=== PATIENT | male | born 1935 | race Two or more races ===

== ENCOUNTER 2017-11-30 23:24 | Emergency (ER) | payer MEDICARE, OTHER ==
[~2017-11-30] VITALS: Ht 172.7 cm; Wt 83.9 kg
[~2017-11-30 23:24] MED LIST: MECL12.582 PO
--- NOTE | 2017-11-30 23:51 | NUR ---
DR. SALMERON AT BEDSIDE FOR MSE.
[2017-12-01] MEDS ORDERED: NITROGLYCERIN OINT 1 GM PACKET TP ONE
[2017-12-01] MEDS ORDERED: ENALAPRILAT DIHYDRATE 1.25 MG/1 ML VIAL IV ONE
[2017-12-01] MEDS ORDERED: ASPIRIN 81 MG TAB.CHEW PO ONE
[2017-12-01] MEDS ORDERED: METOCLOPRAMIDE HCL 10 MG/2 ML VIAL IV ONE (00:15)
[2017-12-01] MEDS ORDERED: IV NORMAL SALINE 1000 ML BAG IV ONE (00:15)
[2017-12-01 00:26] LABS: BASOPHILS # (AUTO) 0.1 K/uL (0.0-8.0); BASOPHILS % (AUTO) 0.1 % (0.0-2.0); EOSINOPHILS # (AUTO) 0.1 K/uL (0.0-0.7); EOSINOPHILS % (AUTO) 0.1 % (0.0-7.0); HEMATOCRIT 38.7 % (36.7-47.1); HEMOGLOBIN 12.5 g/dL (12.5-16.3); LYMPHOCYTES # (AUTO) 76.1 K/uL (20.0-40.0); LYMPHOCYTES % (AUTO) 92.1 % (20.5-51.5); MEAN CORPUSCULAR HEMOGLOBIN 29.2 uug (23.8-33.4); MEAN CORPUSCULAR HGB CONC 32 g/dL (32.5-36.3); MEAN CORPUSCULAR VOLUME 90.6 fL (73.0-96.2); MONOCYTES # (AUTO) 1.3 K/uL (2.0-10.0); MONOCYTES % (AUTO) 1.6 % (0.0-11.0); NEUTROPHILS % (AUTO) 6.1 % (38.5-71.5); PLATELET COUNT (AUTO) 73 K/uL (152-348); RED BLOOD CELL COUNT(AUTO) 4.27 MIL/uL (4.06-5.63)
[2017-12-01 00:30] LABS: WHITE BLOOD COUNT (AUTO) 82.6 K/uL (3.6-10.2)
[2017-12-01] MEDS ORDERED: METOCLOPRAMIDE HCL 10 MG/2 ML VIAL ONE (00:31)
[2017-12-01 00:32] LABS: CARBON DIOXIDE 27 mmol/L (21-32); CHLORIDE 102 mmol/L (98-107); CREATININE 1.3 mg/dL (0.6-1.3); GLUCOSE 155 mg/dL (74-106); POTASSIUM 3.6 mmol/L (3.5-5.1); UREA NITROGEN, BLOOD 23 mg/dL (7-18)
[2017-12-01 00:44] LABS: ALANINE AMINOTRANSFERASE 18 U/L (16-63); ALKALINE PHOSPHATASE 116 U/L (50-136); ASPARTATE AMINOTRANSFERASE 21 U/L (15-37); BILIRUBIN,DIRECT 0.2 mg/dL (0.0-0.2); BILIRUBIN,TOTAL 0.4 mg/dL (0.2-1.0); TOTAL PROTEIN, SERUM 6.4 g/dL (6.4-8.2)
--- NOTE | 2017-12-01 01:33 | NUR ---
Patient discharged to home in stable conditon. Written and verbal after care instructions given. Patient verbalizes understanding of instructions. PATIENT LEFT WITH STABLE GAIT.
[2017-12-01 01:36] VITALS: BP 153/77
[2017-12-01 01:56] LABS: LYMPHOCYTES % (MANUAL) 91 % (20-40)
[2017-12-01 01:57] LABS: MONOCYTES % (MANUAL) 2 % (2-10); NEUTROPHILS % (MANUAL) 7 % (42-75)
== END 2017-12-01 01:36 | disposition home or self-care (01) ==
LOC: ER 23:28
DX: R11.2 Nausea with vomiting, unspecified (principal); M79.1 Myalgia; Z90.79 Acquired absence of other genital organ(s)
CPT/HCPCS: 36415; 71045; 80048; 80076; 83880; 84484; 85025; 85730; 87400; 93005; 96361; 96374; 99285; A4663; J2765; J7030; 70030-TC

== ENCOUNTER 2018-06-09 15:55 | Emergency (ER) | payer MEDICARE, OTHER ==
[~2018-06-09] VITALS: Ht 177.8 cm; Wt 78.0 kg
[2018-06-09] MEDS ORDERED: IMBRUVICA (16:23)
[2018-06-09] MEDS ORDERED: OXYCOD/APAP TAB 10-325MG (16:23)
[2018-06-09] MEDS ORDERED: LORAZEPAM 2 MG/1 ML VIAL IM ONE (17:00)
[2018-06-09] MEDS ORDERED: LORAZEPAM 2 MG/1 ML VIAL ONE (17:20)
[2018-06-09] MEDS ORDERED: LIDOCAINE 2% (UROJET) 10 ML JELLY MM ONE ×3 (17:25→17:37)
--- NOTE | 2018-06-09 17:26 | NUR ---
PT WAS EVALUATED BY DR SALMERON. DR SALMERON PERFORMED DISIMPACTION PROCEDURE. PT TOLERATED TO PROCEDURE WITHOUT COMPLICATIONS.
--- NOTE | 2018-06-09 17:47 | NUR ---
PT WAS D/C TO HOME. D/C INSTRUCTIONS GIVEN TO THE PT.
[2018-06-09 17:53] VITALS: BP 139/75
== END 2018-06-09 17:54 | disposition home or self-care (01) ==
LOC: ER 15:55
DX: K56.41 Fecal impaction (principal); Z79.899 Other long term (current) drug therapy
CPT/HCPCS: A4663; J2060

== ENCOUNTER 2018-06-24 17:59 | Inpatient (IN) | payer MEDICARE, OTHER ==
[~2018-06-24] VITALS: Ht 170.2 cm; Wt 74.8 kg
[~2018-06-24 17:59] MED LIST changes: +IMBRUVICA; -MECL12.582 PO; +OXYCOD/APAP TAB 10-325MG
[2018-06-24] MEDS ORDERED: OXYC5TAB3 PO ×2 (18:29→23:07)
[2018-06-24] MEDS ORDERED: LEVO750T46 PO (18:29)
[2018-06-24] MEDS ORDERED: ENOX40DI SQ (18:29)
[2018-06-24] MEDS ORDERED: DOCU100C36 PO (18:29)
[2018-06-24] MEDS ORDERED: ACET-73 PO (18:43)
[2018-06-24] MEDS ORDERED: GABA-532 PO (18:43)
[2018-06-24] MEDS ORDERED: MELA5TAB PO (19:38)
[2018-06-24] MEDS ORDERED: SENN-167 PO ×2 (19:38→23:07)
[2018-06-24 20:03] VITALS: BP 116/57
[2018-06-24] MEDS ORDERED: SENNOSIDES 1 TABLET PO SCH (20:45)
[2018-06-24] MEDS ORDERED: DOCUSATE SODIUM 100 MG CAPSULE PO PRN (20:45)
[2018-06-24] MEDS: ACETAMINOPHEN 325 MG TABLET PO PRN (22:04)
[2018-06-24] MEDS: MELATONIN 3 MG TABLET PO SCH (22:04)
[2018-06-24] MEDS ORDERED: SENNOSIDES 1 TABLET PO PRN (23:15)
[2018-06-24] MEDS: OXYCODONE HCL 5 MG TABLET PO SCH (23:28)
[2018-06-25 05:51] VITALS: BP 119/54
[2018-06-25] MEDS: OXYCODONE HCL 5 MG TABLET PO SCH (06:12)
[2018-06-25 07:33] LABS: BASOPHILS % (AUTO) 0.1 % (0.0-2.0); EOSINOPHILS # (AUTO) 0.2 K/uL (0.0-0.7); EOSINOPHILS % (AUTO) 0.9 % (0.0-7.0); HEMATOCRIT 22.8 % (36.7-47.1); HEMOGLOBIN 7.5 g/dL (12.5-16.3); LYMPHOCYTES # (AUTO) 14.9 K/uL (20.0-40.0); LYMPHOCYTES % (AUTO) 81.2 % (20.5-51.5); MEAN CORPUSCULAR HEMOGLOBIN 30.1 uug (23.8-33.4); MEAN CORPUSCULAR HGB CONC 33 g/dL (32.5-36.3); MEAN CORPUSCULAR VOLUME 91.4 fL (73.0-96.2); MONOCYTES # (AUTO) 0.5 K/uL (2.0-10.0); MONOCYTES % (AUTO) 2.7 % (0.0-11.0); NEUTROPHILS # (AUTO) 2.8 K/uL (1.8-8.9); NEUTROPHILS % (AUTO) 15.1 % (38.5-71.5)
[2018-06-25 07:44] LABS: RED BLOOD CELL COUNT(AUTO) 2.49 MIL/uL (4.06-5.63); WHITE BLOOD COUNT (AUTO) 18.4 K/uL (3.6-10.2)
[2018-06-25 07:45] LABS: PLATELET COUNT (AUTO) 127 K/uL (152-348)
[2018-06-25 08:06] LABS: CARBON DIOXIDE 30 mmol/L (21-32); CHLORIDE 104 mmol/L (98-107); CHOLESTEROL 113 mg/dL (<200); GLUCOSE 118 mg/dL (74-106); HDL CHOLESTEROL 25 mg/dL (40-60); MAGNESIUM 2.2 mg/dL (1.8-2.4); PHOSPHOROUS 3.6 mg/dL (2.5-4.9); POTASSIUM 4.4 mmol/L (3.5-5.1); TRIGLYCERIDES 69 MG/DL (30-150); UREA NITROGEN, BLOOD 24 mg/dL (7-18)
[2018-06-25 08:17] LABS: THYROID STIMULATING HORMONE 1.091 mIU/mL (0.358-3.740)
[2018-06-25] MEDS ORDERED: ENOXAPARIN SODIUM 40 MG/0.4 ML DISP.SYRIN SQ SCH (09:00)
[2018-06-25] MEDS: LEVOFLOXACIN 750 MG TABLET PO SCH (09:40)
[2018-06-25 10:29] LABS: EOSINOPHILS % (MANUAL) 3 % (0-8); LYMPHOCYTES % (MANUAL) 76 % (20-40); MONOCYTES % (MANUAL) 1 % (2-10); NEUTROPHILS % (MANUAL) 20 % (42-75)
[2018-06-25] MEDS ORDERED: OXYCODONE HCL 5 MG TABLET PO PRN (12:00)
[2018-06-25] MEDS: ACETAMINOPHEN 325 MG TABLET PO PRN ×2 (12:36→18:40)
[2018-06-25] MEDS ORDERED: KETOROLAC TROMETHAMINE 10 MG TABLET PO PRN (18:45)
[2018-06-25 19:58] VITALS: BP 113/55
[2018-06-25 20:01] VITALS: BP 113/55
[2018-06-25] MEDS: OXYCODONE HCL 10 MG TAB.SR.12H PO SCH (21:07)
[2018-06-25] MEDS: MELATONIN 3 MG TABLET PO SCH (21:07)
[2018-06-26 05:40] VITALS: BP 112/54
[2018-06-26 08:46] LABS: BASOPHILS % (AUTO) 0.2 % (0.0-2.0); EOSINOPHILS # (AUTO) 0.2 K/uL (0.0-0.7); LYMPHOCYTES # (AUTO) 17.3 K/uL (20.0-40.0); LYMPHOCYTES % (AUTO) 80.4 % (20.5-51.5); MEAN CORPUSCULAR HEMOGLOBIN 30.3 uug (23.8-33.4); MEAN CORPUSCULAR HGB CONC 33 g/dL (32.5-36.3); MEAN CORPUSCULAR VOLUME 91.3 fL (73.0-96.2); MONOCYTES # (AUTO) 0.5 K/uL (2.0-10.0); MONOCYTES % (AUTO) 2.5 % (0.0-11.0); NEUTROPHILS # (AUTO) 3.4 K/uL (1.8-8.9); NEUTROPHILS % (AUTO) 15.9 % (38.5-71.5); PLATELET COUNT (AUTO) 154 K/uL (152-348); RED BLOOD CELL COUNT(AUTO) 2.62 MIL/uL (4.06-5.63); WHITE BLOOD COUNT (AUTO) 21.6 K/uL (3.6-10.2)
[2018-06-26] MEDS: LEVOFLOXACIN 750 MG TABLET PO SCH (08:47)
[2018-06-26] MEDS: OXYCODONE HCL 10 MG TAB.SR.12H PO SCH ×2 (08:48→20:57)
[2018-06-26 08:53] VITALS: BP 112/51
[2018-06-26 09:00] LABS: IRON, SERUM 31 ug/dL (50-175)
[2018-06-26] MEDS: OXYCODONE HCL 5 MG TABLET PO PRN ×2 (10:35→14:46)
[2018-06-26 11:38] LABS: EOSINOPHILS % (MANUAL) 1 % (0-8); LYMPHOCYTES % (MANUAL) 85 % (20-40); NEUTROPHILS % (MANUAL) 14 % (42-75)
[2018-06-26 19:30] VITALS: BP 111/57
[2018-06-26] MEDS: TEMAZEPAM 15 MG CAPSULE PO SCH (20:57)
[2018-06-26] MEDS: MELATONIN 3 MG TABLET PO SCH (20:57)
[2018-06-27 05:30] VITALS: BP 111/57
[2018-06-27] MEDS: LEVOFLOXACIN 750 MG TABLET PO SCH (07:58)
[2018-06-27] MEDS: OXYCODONE HCL 10 MG TAB.SR.12H PO SCH ×2 (08:00→22:30)
[2018-06-27 12:51] LABS: *OCCULT BLOOD STOOL NEGATIVE (NEGATIVE)
[2018-06-27 16:28] VITALS: BP 111/53
[2018-06-27] MEDS ORDERED: DIAZEPAM 5 MG TABLET PO PRN (18:00)
[2018-06-27] MEDS: MAGNESIUM HYDROXIDE 30 ML LIQUID UDC PO PRN (18:01)
[2018-06-27] MEDS ORDERED: Z GUARD REMEDY PASTE 57 GM TUBE TOP PRN (19:30)
[2018-06-27] MEDS: OXYCODONE HCL 5 MG TABLET PO PRN (19:40)
[2018-06-27 20:52] VITALS: BP 129/68
[2018-06-27] MEDS ORDERED: MAGNESIUM HYDROXIDE 30 ML LIQUID UDC PO SCH (21:00)
[2018-06-27] MEDS: MELATONIN 3 MG TABLET PO SCH (21:02)
[2018-06-27] MEDS: TEMAZEPAM 15 MG CAPSULE PO SCH (21:05)
[2018-06-28 05:25] VITALS: BP 97/58
[2018-06-28] MEDS: ESCITALOPRAM OXALATE 10 MG TABLET PO SCH (08:49)
[2018-06-28] MEDS: LEVOFLOXACIN 750 MG TABLET PO SCH (08:49)
[2018-06-28] MEDS: SENNOSIDES/DOCUSATE SODIUM TABLET PO SCH (08:50)
[2018-06-28] MEDS: OXYCODONE HCL 10 MG TAB.SR.12H PO SCH ×2 (08:51→20:57)
[2018-06-28] MEDS: OXYCODONE HCL 5 MG TABLET PO PRN ×2 (10:23→18:32)
[2018-06-28] MEDS: MAGNESIUM HYDROXIDE 30 ML LIQUID UDC PO PRN (18:30)
[2018-06-28 20:13] VITALS: BP 121/49
[2018-06-28] MEDS: TEMAZEPAM 15 MG CAPSULE PO SCH (20:56)
[2018-06-28] MEDS: MELATONIN 3 MG TABLET PO SCH (20:56)
[2018-06-29 06:06] VITALS: BP 104/49
[2018-06-29 07:14] LABS: BASOPHILS % (AUTO) 0.3 % (0.0-2.0); EOSINOPHILS # (AUTO) 0.3 K/uL (0.0-0.7); EOSINOPHILS % (AUTO) 1.5 % (0.0-7.0); HEMATOCRIT 21.6 % (36.7-47.1); LYMPHOCYTES # (AUTO) 15.6 K/uL (20.0-40.0); LYMPHOCYTES % (AUTO) 81.7 % (20.5-51.5); MEAN CORPUSCULAR HEMOGLOBIN 29.8 uug (23.8-33.4); MEAN CORPUSCULAR HGB CONC 33 g/dL (32.5-36.3); MEAN CORPUSCULAR VOLUME 91.4 fL (73.0-96.2); MONOCYTES # (AUTO) 0.4 K/uL (2.0-10.0); MONOCYTES % (AUTO) 2.1 % (0.0-11.0); NEUTROPHILS # (AUTO) 2.7 K/uL (1.8-8.9); NEUTROPHILS % (AUTO) 14.4 % (38.5-71.5); PLATELET COUNT (AUTO) 162 K/uL (152-348)
[2018-06-29 07:15] LABS: ALANINE AMINOTRANSFERASE 24 U/L (16-63); ALKALINE PHOSPHATASE 92 U/L (50-136); ASPARTATE AMINOTRANSFERASE 24 U/L (15-37); BILIRUBIN,TOTAL 0.6 mg/dL (0.2-1.0); CARBON DIOXIDE 31 mmol/L (21-32); CHLORIDE 105 mmol/L (98-107); CREATININE 1.1 mg/dL (0.6-1.3); GLUCOSE 109 mg/dL (74-106); MAGNESIUM 2.3 mg/dL (1.8-2.4); TOTAL PROTEIN, SERUM 4.9 g/dL (6.4-8.2); UREA NITROGEN, BLOOD 16 mg/dL (7-18)
[2018-06-29 07:16] LABS: RED BLOOD CELL COUNT(AUTO) 2.37 MIL/uL (4.06-5.63)
[2018-06-29] MEDS: OXYCODONE HCL 10 MG TAB.SR.12H PO SCH ×2 (08:30→20:52)
[2018-06-29] MEDS: SENNOSIDES/DOCUSATE SODIUM TABLET PO SCH (08:30)
[2018-06-29] MEDS: ESCITALOPRAM OXALATE 10 MG TABLET PO SCH (08:30)
[2018-06-29] MEDS: MAGNESIUM HYDROXIDE 30 ML LIQUID UDC PO PRN (08:31)
[2018-06-29 09:20] LABS: EOSINOPHILS % (MANUAL) 1 % (0-8); LYMPHOCYTES % (MANUAL) 80 % (20-40); MONOCYTES % (MANUAL) 3 % (2-10); NEUTROPHILS % (MANUAL) 16 % (42-75)
[2018-06-29 10:59] VITALS: BP 105/44
[2018-06-29] MEDS ORDERED: IV NORMAL SALINE 1,000 ML IV ONE (12:30)
[2018-06-29] MEDS ORDERED: IV NORMAL SALINE 250 ML IV PRN (12:45)
[2018-06-29] MEDS: OXYCODONE HCL 5 MG TABLET PO PRN (14:34)
[2018-06-29 16:00] VITALS: BP 110/49
[2018-06-29 20:19] VITALS: BP 108/46
[2018-06-29] MEDS: TEMAZEPAM 15 MG CAPSULE PO SCH (20:51)
[2018-06-29] MEDS: MELATONIN 3 MG TABLET PO SCH (20:57)
[2018-06-30] VITALS (10 sets, daily range): BP systolic 11–151; BP diastolic 35–58
[2018-06-30] MEDS: ESCITALOPRAM OXALATE 10 MG TABLET PO SCH (07:59)
[2018-06-30] MEDS: OXYCODONE HCL 10 MG TAB.SR.12H PO SCH ×2 (07:59→20:17)
[2018-06-30] MEDS: SENNOSIDES/DOCUSATE SODIUM TABLET PO SCH (08:00)
[2018-06-30 12:24] LABS: BASOPHILS # (AUTO) 0.1 K/uL (0.0-8.0); BASOPHILS % (AUTO) 0.5 % (0.0-2.0); EOSINOPHILS # (AUTO) 0.3 K/uL (0.0-0.7); EOSINOPHILS % (AUTO) 1.1 % (0.0-7.0); HEMATOCRIT 23.3 % (36.7-47.1); LYMPHOCYTES % (AUTO) 82.6 % (20.5-51.5); MEAN CORPUSCULAR HEMOGLOBIN 29.5 uug (23.8-33.4); MEAN CORPUSCULAR HGB CONC 32 g/dL (32.5-36.3); MEAN CORPUSCULAR VOLUME 92.2 fL (73.0-96.2); MONOCYTES # (AUTO) 0.6 K/uL (2.0-10.0); MONOCYTES % (AUTO) 2.5 % (0.0-11.0); NEUTROPHILS # (AUTO) 3.2 K/uL (1.8-8.9); NEUTROPHILS % (AUTO) 13.3 % (38.5-71.5); PLATELET COUNT (AUTO) 179 K/uL (152-348); RED BLOOD CELL COUNT(AUTO) 2.52 MIL/uL (4.06-5.63); WHITE BLOOD COUNT (AUTO) 24.2 K/uL (3.6-10.2)
[2018-06-30 12:28] LABS: HEMOGLOBIN 7.4 g/dL (12.5-16.3)
[2018-06-30 12:42] LABS: ALANINE AMINOTRANSFERASE 29 U/L (16-63); ALKALINE PHOSPHATASE 97 U/L (50-136); ASPARTATE AMINOTRANSFERASE 30 U/L (15-37); BILIRUBIN,TOTAL 0.6 mg/dL (0.2-1.0); CARBON DIOXIDE 26 mmol/L (21-32); CHLORIDE 104 mmol/L (98-107); GLUCOSE 92 mg/dL (74-106); POTASSIUM 4.4 mmol/L (3.5-5.1); TOTAL PROTEIN, SERUM 5.1 g/dL (6.4-8.2); UREA NITROGEN, BLOOD 16 mg/dL (7-18)
[2018-06-30 14:11] LABS: BAND % (MANUAL) 1 % (0-10); EOSINOPHILS % (MANUAL) 2 % (0-8); LYMPHOCYTES % (MANUAL) 81 % (20-40); MONOCYTES % (MANUAL) 3 % (2-10); NEUTROPHILS % (MANUAL) 13 % (42-75)
[2018-06-30] MEDS: TEMAZEPAM 15 MG CAPSULE PO SCH (20:15)
[2018-06-30] MEDS: MAGNESIUM HYDROXIDE 30 ML LIQUID UDC PO PRN (20:18)
[2018-06-30] MEDS: MELATONIN 3 MG TABLET PO SCH (21:00)
[2018-07-01 05:52] VITALS: BP 120/49
[2018-07-01 07:41] VITALS: BP 107/46
[2018-07-01] MEDS: OXYCODONE HCL 10 MG TAB.SR.12H PO SCH ×2 (08:19→20:11)
[2018-07-01] MEDS: SENNOSIDES/DOCUSATE SODIUM TABLET PO SCH (08:20)
[2018-07-01] MEDS: ESCITALOPRAM OXALATE 10 MG TABLET PO SCH (08:20)
[2018-07-01] MEDS: FERROUS SULFATE 325 MG TABEC PO SCH ×2 (17:34→20:11)
[2018-07-01 19:30] VITALS: BP 113/49
[2018-07-01] MEDS: MAGNESIUM HYDROXIDE 30 ML LIQUID UDC PO PRN (20:11)
[2018-07-01] MEDS: MELATONIN 3 MG TABLET PO SCH (20:11)
[2018-07-01] MEDS: TEMAZEPAM 15 MG CAPSULE PO SCH (20:11)
[2018-07-02] MEDS: FERROUS SULFATE 325 MG TABEC PO SCH (08:47)
[2018-07-02] MEDS: SENNOSIDES/DOCUSATE SODIUM TABLET PO SCH (08:47)
[2018-07-02] MEDS: ESCITALOPRAM OXALATE 10 MG TABLET PO SCH (08:47)
[2018-07-02] MEDS: OXYCODONE HCL 10 MG TAB.SR.12H PO SCH ×2 (08:48→20:15)
[2018-07-02 08:52] VITALS: BP 110/43
[2018-07-02 10:07] LABS: *IMMUNOGLOBULIN G, SERUM 376 mg/dL (700-1600); A/G RATIO 1.5 (0.7-1.7); ALBUMIN 2.8 g/dL (2.9-4.4); ALPHA-1-GLOBULIN 0.3 g/dL (0.0-0.4); ALPHA-2-GLOBULIN 0.7 g/dL (0.4-1.0); BETA GLOBULIN 0.6 g/dL (0.7-1.3); GAMMA GLOBULIN 0.3 g/dL (0.4-1.8); GLOBULIN, TOTAL 1.9 g/dL (2.2-3.9); IMMUNOGLOBULIN A, SERUM 102 mg/dL (61-437); IMMUNOGLOBULIN M, SERUM 18 mg/dL (15-143); M-SPIKE Not Observed g/dL (Not Observed)
[2018-07-02 19:55] VITALS: BP 114/61
[2018-07-02] MEDS: TEMAZEPAM 15 MG CAPSULE PO SCH (20:15)
[2018-07-02] MEDS: MELATONIN 3 MG TABLET PO SCH (20:15)
[2018-07-02] MEDS: MAGNESIUM HYDROXIDE 30 ML LIQUID UDC PO PRN (20:21)
[2018-07-03 06:54] VITALS: BP 109/45
[2018-07-03 06:57] LABS: BASOPHILS # (AUTO) 0.1 K/uL (0.0-8.0); BASOPHILS % (AUTO) 0.3 % (0.0-2.0); EOSINOPHILS # (AUTO) 0.3 K/uL (0.0-0.7); EOSINOPHILS % (AUTO) 0.9 % (0.0-7.0); HEMATOCRIT 26.6 % (36.7-47.1); HEMOGLOBIN 8.6 g/dL (12.5-16.3); LYMPHOCYTES # (AUTO) 25.1 K/uL (20.0-40.0); LYMPHOCYTES % (AUTO) 84.4 % (20.5-51.5); MEAN CORPUSCULAR HEMOGLOBIN 29.2 uug (23.8-33.4); MEAN CORPUSCULAR HGB CONC 32 g/dL (32.5-36.3); MEAN CORPUSCULAR VOLUME 90.7 fL (73.0-96.2); MONOCYTES # (AUTO) 0.7 K/uL (2.0-10.0); MONOCYTES % (AUTO) 2.2 % (0.0-11.0); NEUTROPHILS # (AUTO) 3.6 K/uL (1.8-8.9); NEUTROPHILS % (AUTO) 12.2 % (38.5-71.5); PLATELET COUNT (AUTO) 180 K/uL (152-348); RED BLOOD CELL COUNT(AUTO) 2.94 MIL/uL (4.06-5.63); WHITE BLOOD COUNT (AUTO) 29.8 K/uL (3.6-10.2)
[2018-07-03 07:18] LABS: ALANINE AMINOTRANSFERASE 21 U/L (16-63); ALKALINE PHOSPHATASE 100 U/L (50-136); ASPARTATE AMINOTRANSFERASE 22 U/L (15-37); BILIRUBIN,TOTAL 0.5 mg/dL (0.2-1.0); CARBON DIOXIDE 30 mmol/L (21-32); CHLORIDE 106 mmol/L (98-107); CREATININE 1.2 mg/dL (0.6-1.3); GLUCOSE 111 mg/dL (74-106); MAGNESIUM 2.5 mg/dL (1.8-2.4); POTASSIUM 4.7 mmol/L (3.5-5.1); TOTAL PROTEIN, SERUM 5.3 g/dL (6.4-8.2); UREA NITROGEN, BLOOD 22 mg/dL (7-18)
[2018-07-03] MEDS: ESCITALOPRAM OXALATE 10 MG TABLET PO SCH (08:24)
[2018-07-03] MEDS: OXYCODONE HCL 10 MG TAB.SR.12H PO SCH ×2 (08:24→20:14)
[2018-07-03] MEDS: SENNOSIDES/DOCUSATE SODIUM TABLET PO SCH (08:24)
[2018-07-03 09:39] VITALS: BP 117/45
[2018-07-03 10:45] LABS: EOSINOPHILS % (MANUAL) 1 % (0-8); LYMPHOCYTES % (MANUAL) 87 % (20-40); NEUTROPHILS % (MANUAL) 12 % (42-75)
[2018-07-03] MEDS: SOD FERRIC GLUC COMPLX/SUCROSE 125 MG in IV NORMAL SALINE 100 ML IV SCH ×2 (14:00→14:49)
[2018-07-03 17:25] VITALS: BP 106/51
[2018-07-03] MEDS: OXYCODONE HCL 5 MG TABLET PO PRN (17:57)
[2018-07-03 20:00] VITALS: BP 109/42
[2018-07-03] MEDS: TEMAZEPAM 15 MG CAPSULE PO SCH (20:12)
[2018-07-03] MEDS: MELATONIN 3 MG TABLET PO SCH (20:12)
[2018-07-03] MEDS: FERROUS SULFATE 325 MG TABEC PO SCH (20:13)
[2018-07-03] MEDS: MAGNESIUM HYDROXIDE 30 ML LIQUID UDC PO PRN (20:15)
[2018-07-04 04:00] VITALS: BP 119/55
[2018-07-04 04:05] VITALS: BP 115/54
[2018-07-04 08:38] VITALS: BP 110/49
[2018-07-04] MEDS: SENNOSIDES/DOCUSATE SODIUM TABLET PO SCH (08:48)
[2018-07-04] MEDS: OXYCODONE HCL 10 MG TAB.SR.12H PO SCH ×2 (08:48→20:18)
[2018-07-04] MEDS: FERROUS SULFATE 325 MG TABEC PO SCH ×2 (08:48→20:17)
[2018-07-04] MEDS: ESCITALOPRAM OXALATE 10 MG TABLET PO SCH (08:48)
[2018-07-04] MEDS: ACETAMINOPHEN 325 MG TABLET PO PRN (11:47)
[2018-07-04 16:15] VITALS: BP 115/54
[2018-07-04 20:00] VITALS: BP 121/50
[2018-07-04] MEDS: TEMAZEPAM 15 MG CAPSULE PO SCH (20:17)
[2018-07-04] MEDS: MELATONIN 3 MG TABLET PO SCH (20:18)
[2018-07-04] MEDS: MAGNESIUM HYDROXIDE 30 ML LIQUID UDC PO PRN (20:22)
[2018-07-05 04:00] VITALS: BP 118/58
[2018-07-05] MEDS: FERROUS SULFATE 325 MG TABEC PO SCH ×2 (08:30→20:08)
[2018-07-05] MEDS: ESCITALOPRAM OXALATE 10 MG TABLET PO SCH (08:30)
[2018-07-05] MEDS: SENNOSIDES/DOCUSATE SODIUM TABLET PO SCH (08:30)
[2018-07-05] MEDS: OXYCODONE HCL 10 MG TAB.SR.12H PO SCH (08:31)
[2018-07-05 16:05] VITALS: BP 112/54
[2018-07-05] MEDS: OXYCODONE HCL 5 MG TABLET PO PRN (18:56)
[2018-07-05 19:51] VITALS: BP 124/46
[2018-07-05] MEDS: MELATONIN 3 MG TABLET PO SCH (20:08)
[2018-07-05] MEDS: TEMAZEPAM 15 MG CAPSULE PO SCH (20:08)
[2018-07-06 05:00] VITALS: BP 111/50
[2018-07-06] MEDS: ACETAMINOPHEN 325 MG TABLET PO PRN (09:22)
[2018-07-06] MEDS: SENNOSIDES/DOCUSATE SODIUM TABLET PO SCH (09:22)
[2018-07-06] MEDS: FERROUS SULFATE 325 MG TABEC PO SCH ×2 (09:22→20:09)
[2018-07-06] MEDS: ESCITALOPRAM OXALATE 10 MG TABLET PO SCH (09:22)
[2018-07-06] MEDS: OXYCODONE HCL 5 MG TABLET PO PRN (12:34)
[2018-07-06 16:07] VITALS: BP 99/46
[2018-07-06 19:30] VITALS: BP 115/49
[2018-07-06] MEDS: MELATONIN 3 MG TABLET PO SCH (20:09)
[2018-07-06] MEDS: TEMAZEPAM 15 MG CAPSULE PO SCH (20:10)
[2018-07-07 04:30] VITALS: BP 125/59
[2018-07-07] MEDS: SENNOSIDES/DOCUSATE SODIUM TABLET PO SCH (08:18)
[2018-07-07] MEDS: FERROUS SULFATE 325 MG TABEC PO SCH (08:18)
[2018-07-07] MEDS: ESCITALOPRAM OXALATE 10 MG TABLET PO SCH (08:18)
[2018-07-07] MEDS: OXYCODONE HCL 5 MG TABLET PO PRN (08:18)
== END 2018-07-07 15:05 | disposition home health service (06) | DRG 949 ==
PROVIDERS: ADMIT Physical Medicine & Rehabilitation Pain Medicine; ATTEND Physical Medicine & Rehabilitation Pain Medicine
PROC: 30233N1 Transfusion of Nonautologous Red Blood Cells into Peripheral Vein, Percutaneous Approach (ICD-10-PCS; principal; 2018-06-30)
DX: Z48.3 Aftercare following surgery for neoplasm (principal); J18.9 Pneumonia, unspecified organism; E43 Unspecified severe protein-calorie malnutrition; C40.21 Malignant neoplasm of long bones of right lower limb; C91.11 Chronic lymphocytic leukemia of B-cell type in remission; R64 Cachexia; D68.59 Other primary thrombophilia; D64.9 Anemia, unspecified; D69.6 Thrombocytopenia, unspecified; F32.9 Major depressive disorder, single episode, unspecified; F41.9 Anxiety disorder, unspecified; K59.00 Constipation, unspecified; Z68.25 Body mass index [BMI] 25.0-25.9, adult; Z85.46 Personal history of malignant neoplasm of prostate; Z90.79 Acquired absence of other genital organ(s); R26.9 Unspecified abnormalities of gait and mobility; Z92.21 Personal history of antineoplastic chemotherapy; M19.90 Unspecified osteoarthritis, unspecified site; Y95 Nosocomial condition; Z88.1 Allergy status to other antibiotic agents; G57.31 Lesion of lateral popliteal nerve, right lower limb; M21.371 Foot drop, right foot; E88.09 Other disorders of plasma-protein metabolism, not elsewhere classified
CPT/HCPCS: 36415; 71045; 73551; 73590; 82746; 82784; 83010; 83550; 83615; 83735; 84100; 84155; 84165; 84443; 85025; 85610; 85730; 86334; 86850; 86880; 86900; 86901; 86920; 87040; 92526; 92610; 93307; 97110; 97112; 97116; 97530; 97535; A4663; J1650; J2916; J3490; J7030; J7050; P9016-BL; P9021

== ENCOUNTER 2018-09-11 08:15 | Emergency (ER) | payer MEDICARE, OTHER ==
[~2018-09-11] VITALS: Ht 177.8 cm; Wt 72.6 kg
[~2018-09-11 08:15] MED LIST changes: +ACET-73 PO; +DOCU100C36 PO; +ENOX40DI SQ; +LEVO750T46 PO; +MELA5TAB PO; +OXYC5TAB3 PO; +SENN-167 PO
[2018-09-11] MEDS ORDERED: PAZO200T PO (08:27)
[2018-09-11] MEDS ORDERED: ONDANSETRON 4 MG/2 ML VIAL ONE (08:41)
[2018-09-11] MEDS ORDERED: ONDANSETRON 4 MG/2 ML VIAL IV ONE (08:45)
[2018-09-11] MEDS ORDERED: IV NORMAL SALINE 500 ML BAG IV ONE (08:45)
--- NOTE | 2018-09-11 08:47 | NUR ---
PT IS IN ROOM #1A. DR HILL EVALUATED THE PT.
[2018-09-11 08:49] LABS: HEMOGLOBIN 11.1 g/dL (12.5-16.3); MEAN CORPUSCULAR VOLUME 83.9 fL (73.0-96.2)
[2018-09-11 08:58] LABS: BASOPHILS # (AUTO) 0.1 K/uL (0.0-8.0); BASOPHILS % (AUTO) 0.4 % (0.0-2.0); CARBON DIOXIDE 28 mmol/L (21-32); CHLORIDE 104 mmol/L (98-107); CREATININE 1.1 mg/dL (0.6-1.3); EOSINOPHILS % (AUTO) 0.1 % (0.0-7.0); GLUCOSE 120 mg/dL (74-106); HEMATOCRIT 35.1 % (36.7-47.1); LYMPHOCYTES # (AUTO) 23.7 K/uL (20.0-40.0); LYMPHOCYTES % (AUTO) 87.4 % (20.5-51.5); MEAN CORPUSCULAR HEMOGLOBIN 26.6 uug (23.8-33.4); MEAN CORPUSCULAR HGB CONC 32 g/dL (32.5-36.3); MONOCYTES # (AUTO) 0.5 K/uL (2.0-10.0); MONOCYTES % (AUTO) 1.8 % (0.0-11.0); NEUTROPHILS # (AUTO) 2.8 K/uL (1.8-8.9); NEUTROPHILS % (AUTO) 10.3 % (38.5-71.5); PLATELET COUNT (AUTO) 70 K/uL (152-348); POTASSIUM 4.4 mmol/L (3.5-5.1); RED BLOOD CELL COUNT(AUTO) 4.18 MIL/uL (4.06-5.63); UREA NITROGEN, BLOOD 27 mg/dL (7-18); WHITE BLOOD COUNT (AUTO) 27.2 K/uL (3.6-10.2)
[2018-09-11 09:14] LABS: ALANINE AMINOTRANSFERASE 16 U/L (16-63); ALKALINE PHOSPHATASE 99 U/L (50-136); ASPARTATE AMINOTRANSFERASE 19 U/L (15-37); BILIRUBIN,DIRECT 0.2 mg/dL (0.0-0.2); BILIRUBIN,TOTAL 0.8 mg/dL (0.2-1.0); TOTAL PROTEIN, SERUM 6.2 g/dL (6.4-8.2)
[2018-09-11 09:25] LABS: LYMPHOCYTES % (MANUAL) 84 % (20-40); NEUTROPHILS % (MANUAL) 14 % (42-75)
[2018-09-11 09:26] LABS: MONOCYTES % (MANUAL) 2 % (2-10)
[2018-09-11] MEDS ORDERED: LORAZEPAM 0.5 MG TABLET ONE (09:53)
[2018-09-11] MEDS ORDERED: LORAZEPAM 0.5 MG TABLET PO ONE (10:00)
--- NOTE | 2018-09-11 10:00 | NUR ---
PT WAS D/C 'd TO HOME. D/C INSTRUCTIONS GIVEN TO THE PT.
[2018-09-11 10:01] VITALS: BP 146/75
== END 2018-09-11 10:02 | disposition home or self-care (01) ==
LOC: ER 08:15
DX: R06.02 Shortness of breath (principal); Z88.8 Allergy status to other drugs, medicaments and biological substances
CPT/HCPCS: 36415; 71045; 80048; 80076; 83880; 84484; 85025; 85379; 85730; 93005; 96361; 96374; 99285; J2405; 70030-TC; A4663; J7030

== ENCOUNTER 2018-11-13 19:56 | Emergency (ER) | END 2018-11-13 22:30 | disposition home or self-care (01) | DX: E86.0 Dehydration (principal); C78.7 Secondary malignant neoplasm of liver and intrahepatic bile duct; C41.9 Malignant neoplasm of bone and articular cartilage, unspecified; Z88.8 Allergy status to other drugs, medicaments and biological substances; Z79.891 Long term (current) use of opiate analgesic; Z79.899 Other long term (current) drug therapy | CPT/HCPCS: 36415; 74022; 80048; 80076; 81001; 83605; 83690; 84484; 85025; 85730; 87040 ×2; 93005; 96361; 96374; 99284; J2405 ×2 ==

== ENCOUNTER 2018-11-27 15:38 | Emergency (ER) | payer MEDICARE, OTHER ==
[~2018-11-27] VITALS: Ht 177.8 cm; Wt 72.6 kg
[~2018-11-27 15:38] MED LIST changes: -LEVO750T46 PO; +PAZO200T PO; -SENN-167 PO; +SENN-168 PO
--- NOTE | 2018-11-27 15:50 | NUR ---
DR LR AT THE BEDSIDE FOR MSE.
[2018-11-27] MEDS ORDERED: ONDANSETRON 4 MG/2 ML VIAL ONE (15:55)
[2018-11-27] MEDS ORDERED: ONDANSETRON 4 MG/2 ML VIAL IV ONE (16:00)
[2018-11-27] MEDS ORDERED: IV NORMAL SALINE 1000 ML BAG IV ONE (16:00)
[2018-11-27] MEDS ORDERED: LORAZEPAM 2 MG/1 ML VIAL IV ONE (16:00)
[2018-11-27] MEDS ORDERED: LORAZEPAM 2 MG/1 ML VIAL ONE (16:02)
[2018-11-27] MEDS ORDERED: OXYCODONE/APAP 5-325 MG TABLET PO ONE (16:15)
[2018-11-27] MEDS ORDERED: OXYCODONE/APAP 5-325 MG TABLET ONE (16:19)
[2018-11-27] MEDS ORDERED: BUSP15TA3 PO (16:38)
[2018-11-27] MEDS ORDERED: LINA290C PO (16:38)
[2018-11-27] MEDS ORDERED: PROC10TA13 PO (16:38)
[2018-11-27] MEDS ORDERED: PAZO200T PO (16:38)
--- NOTE | 2018-11-27 16:53 | NUR ---
PT ABLE TO TOLORATE PO INTAKE, DENIES N/V.
[2018-11-27 18:36] VITALS: BP 141/70
--- NOTE | 2018-11-27 18:36 | NUR ---
IV removed. Catheter intact and site benign. Pressure and 4x4 gauze applied to site. No bleeding noted.
--- NOTE | 2018-11-27 18:37 | NUR ---
Patient discharged to home in stable conditon. Written and verbal after care instructions given. Patient verbalizes understanding of instructions.
== END 2018-11-27 18:38 | disposition home or self-care (01) ==
LOC: ER 15:41
DX: R11.2 Nausea with vomiting, unspecified (principal); R05 Cough; Z88.8 Allergy status to other drugs, medicaments and biological substances; Z79.891 Long term (current) use of opiate analgesic; Z79.899 Other long term (current) drug therapy
CPT/HCPCS: 71045; 96361; 96374; 96375; 99283; J2060; J2405; A4663; J7030